=== PATIENT | male | born 1945 | race Caucasian/White ===

== ENCOUNTER 2016-10-26 10:31 | Emergency (ER) | payer OTHER ==
[~2016-10-26] VITALS: Ht 177.8 cm; Wt 94.0 kg
[~2016-10-26 10:31] MED LIST: ALPRAZOLAM2 MG PO; AMLODIPINE BESY10 MG PO; ASPIRIN81 M1; CYMBALTA30 MG PO; Colace PO; Cymbalta PO; DIOVAN320 MG PO; DIOVAN80 MG PO; Dulcolax PO; ECOTRIN325 MG PO; Folvite PO; Glucophage PO; JANUVIA100 MG PO; K-Dur PO; METFORMIN HCL1000 M1 PO; Motrin PO; Niferex-150,Ferrex 1 PO; Senokot,Sennagen PO; Theragran PO; Thiamine,Vitamin B1 PO; Xanax PO; ZYRTEC10 M2 PO; [UNRECOGNIZED DRUG - OTHER] PO
[2016-10-26 11:30] LABS: BASOPHIL COUNT 0.1 K/uL (0-0.1); EOSINOPHIL (%) 0.6 % (0-5); EOSINOPHIL COUNT 0.1 K/uL (0-0.3); HEMATOCRIT 38.3 % (38.0-50.0); IMMATURE GRANULOCYTE (%) 0.4 % (0.0-0.7); INSTRUMENT ABS NEUTROPHIL CT 7.1 K/uL; LYMPHOCYTE COUNT 1.4 K/uL (1.0-2.8); MCH 33.2 PG (29.0-34.0); MCHC 34.2 G/DL (30.0-36.0); MCV 97.2 FL (86-99); MEAN PLAT.VOLUME 8.4 uM^3 (9.0-12.4); MONOCYTE (%) 10.9 % (3-12); MONOCYTE COUNT 1.1 K/uL (0-0.8); NEUTROPHIL COUNT 7.1 K/uL (1.8-6.4); PLATELET COUNT 234 K/uL (156-360); RBC DIS.WIDTH-CV 11.9 % (11.8-14.6); RBC DIS.WIDTH-SD 42.5 % (39-53); RED BLOOD COUNT 3.94 M/uL (4.00-5.50); WHITE BLOOD COUNT 9.7 K/uL (4.1-10.2)
[2016-10-26 11:35] LABS: PROTHROMBIN TIME 11.5 SEC (10.2-12.9)
[2016-10-26 11:37] LABS: CHLORIDE 103 mEq/L (99-109); POTASSIUM 5.2 mEq/L (3.7-5.4); PTT 28.5 SEC (25-37); SODIUM 134 mEq/L (136-147)
[2016-10-26 11:38] LABS: MAGNESIUM 2.1 mg/dL (1.3-2.7)
[2016-10-26 11:40] LABS: GLUCOSE 178 mg/dL (70-99)
[2016-10-26 11:41] LABS: ANION GAP 12 MEQ/L (2-14)
[2016-10-26 11:42] LABS: TOTAL BILIRUBIN 0.6 mg/dL (0.0-1.0)
[2016-10-26 11:43] LABS: ALKALINE PHOSPHATASE 110 IU/L (3-129)
[2016-10-26 11:44] LABS: GFR ESTIMATE (CALCULATED) 37 mL/min/
[2016-10-26 11:45] LABS: UREA NITROGEN (BUN) 39 mg/dL (9-23)
[2016-10-26 11:47] LABS: CREATINE KINASE 35 IU/L (1-294)
[2016-10-26] MEDS ORDERED: ULTRAM50 MG PO (12:58)
[2016-10-26 16:05] VITALS: BP 107/81
== END 2016-10-26 16:06 | disposition home or self-care (01) ==
LOC: EME 10:31
PROVIDERS: Emergency Medicine
DX: M79.651 Pain in right thigh (principal); N28.9 Disorder of kidney and ureter, unspecified; I10 Essential (primary) hypertension; E11.9 Type 2 diabetes mellitus without complications; Z79.84 Long term (current) use of oral hypoglycemic drugs
CPT/HCPCS: 73552; 73719; 80053; 82550; 83735; 85025; 85610; 85730; 93971; 99281; 99284; J7030

== ENCOUNTER 2016-11-24 09:58 | Day surgery (SDC) | payer OTHER ==
[~2016-11-24] VITALS: Ht 179.1 cm; Wt 85.3 kg
[~2016-11-24 09:58] MED LIST changes: +LYRICA25 MG PO; +ROXICODONE5 MG PO; +ULTRAM50 MG PO; +VITAMIN B1 PO; +XANAX0.5 MG PO
[2016-11-24] MEDS ORDERED: ATORVASTATIN CA80 MG PO (10:06)
[2016-11-24] MEDS ORDERED: TRULICITY1.5 MG/0.5 SC (10:17)
[2016-11-24] MEDS ORDERED: GLUCOPHAGE500 MG PO (10:17)
[2016-11-24] MEDS ORDERED: LITHIUM CARBON300 MG PO (10:23)
[2016-11-24] MEDS ORDERED: FETZIMA20 MG PO (10:23)
[2016-11-24 10:30] LABS: POINT-OF-CARE METER ID UU14174212
[2016-11-24] MEDS ORDERED: ASPIRIN81 M2 PO (10:32)
== END 2016-11-24 12:20 | disposition home or self-care (01) ==
LOC: PAIN 09:58 → SDC 10:30 → PAIN 10:30
PROVIDERS: Anesthesiology Pain Medicine
DX: M54.16 Radiculopathy, lumbar region (principal); E11.9 Type 2 diabetes mellitus without complications; I10 Essential (primary) hypertension; Z79.891 Long term (current) use of opiate analgesic; Z79.84 Long term (current) use of oral hypoglycemic drugs
CPT/HCPCS: 82948; J1100; J1200; J2250; J3010

== ENCOUNTER 2016-12-10 09:54 | Day surgery (SDC) | payer OTHER ==
[~2016-12-10] VITALS: Ht 172.7 cm; Wt 91.6 kg
[~2016-12-10 09:54] MED LIST changes: +ASPIRIN81 M2 PO; +ATORVASTATIN CA80 MG PO; -DIOVAN80 MG PO; +FETZIMA20 MG PO; +GLUCOPHAGE500 MG PO; +LITHIUM CARBON300 MG PO; +TRULICITY1.5 MG/0.5 SC
[2016-12-10] MEDS ORDERED: XANAX0.5 MG PO (10:50)
[2016-12-10 10:57] VITALS: BP 112/65
[2016-12-10 11:29] LABS: POINT-OF-CARE METER ID UU14174212; POINT-OF-CARE USER ID AHSRSCSLC11
[2016-12-10 15:33] LABS: POINT-OF-CARE METER ID UU13113675
[2016-12-10 16:51] VITALS: BP 132/70
[2016-12-10 19:42] VITALS: BP 162/77
== END 2016-12-10 20:31 | disposition home or self-care (01) ==
LOC: SDC 09:54 → 2SOUTH 14:45 → SDC 14:58 → ENRESERV 15:17 → 3EAST 16:30
PROVIDERS: Neurological Surgery
DX: M48.061 Spinal stenosis, lumbar region without neurogenic claudication (principal); M51.16 Intervertebral disc disorders with radiculopathy, lumbar region; M47.26 Other spondylosis with radiculopathy, lumbar region; M41.9 Scoliosis, unspecified; I10 Essential (primary) hypertension; E11.9 Type 2 diabetes mellitus without complications; Z79.82 Long term (current) use of aspirin; Z79.84 Long term (current) use of oral hypoglycemic drugs
CPT/HCPCS: 72020; 76000; 82948; 84132; 90686; G0378; J0690; J1100; J1170; J2250; J2370; J2405; J2765; J2930; J3010; J3370; J3480; S0020

== ENCOUNTER 2017-02-11 23:21 | Observation (INO) | payer OTHER ==
[~2017-02-11] VITALS: Ht 177.8 cm; Wt 87.4 kg
[~2017-02-11 23:21] MED LIST changes: +FETZIMA120 MG PO; -FETZIMA20 MG PO; +GLUCOPHAGE XR,500 MG PO; -GLUCOPHAGE500 MG PO; -LITHIUM CARBON300 MG PO; +LITHOBID300 MG PO; -LYRICA25 MG PO; +LYRICA75 MG PO; +XANAX1 MG PO
[2017-02-11 23:47] LABS: BASOPHIL COUNT 0.1 K/uL (0-0.1); EOSINOPHIL (%) 1.1 % (0-5); EOSINOPHIL COUNT 0.1 K/uL (0-0.3); HEMATOCRIT 39.3 % (38.0-50.0); IMMATURE GRANULOCYTE (%) 0.1 % (0.0-0.7); LYMPHOCYTE COUNT 2.7 K/uL (1.0-2.8); MCH 34.3 PG (29.0-34.0); MCHC 33.8 G/DL (30.0-36.0); MCV 101.3 FL (86-99); MEAN PLAT.VOLUME 8.7 uM^3 (9.0-12.4); MONOCYTE (%) 8.1 % (3-12); MONOCYTE COUNT 0.6 K/uL (0-0.8); NEUTROPHIL (%) 54.1 % (45-76); PLATELET COUNT 285 K/uL (156-360); RBC DIS.WIDTH-CV 12.4 % (11.8-14.6); RBC DIS.WIDTH-SD 46.5 % (39-53); RED BLOOD COUNT 3.88 M/uL (4.00-5.50); WHITE BLOOD COUNT 7.4 K/uL (4.1-10.2)
[2017-02-11 23:53] LABS: PROTHROMBIN TIME 11.4 SEC (10.2-12.9)
[2017-02-11 23:56] LABS: AMYLASE 61 IU/L (1-118); PTT 31.9 SEC (25-37)
[2017-02-11 23:57] LABS: CHLORIDE 100 mEq/L (99-109); POTASSIUM 4.4 mEq/L (3.7-5.4); SODIUM 135 mEq/L (136-147)
[2017-02-11 23:58] LABS: GLUCOSE 142 mg/dL (70-99)
[2017-02-12] LABS: ANION GAP 16 MEQ/L (2-14)
[2017-02-12 00:01] LABS: SERUM ETHYL ALCOHOL 320 mg/dL
[2017-02-12 00:02] LABS: GFR ESTIMATE (CALCULATED) 58 mL/min/ (58.99-99999)
[2017-02-12 00:03] LABS: UREA NITROGEN (BUN) 29 mg/dL (9-23)
[2017-02-12 00:05] LABS: LIPASE 79 U/L (1.0-51.0)
[2017-02-12 00:09] LABS: TROP-I INTERPRETATION NEGATIVE; TROPONIN-I < 0.01 ng/mL (0.0-0.30)
[2017-02-12] MEDS ORDERED: ALDACTONE50 MG PO (01:19)
[2017-02-12] MEDS ORDERED: TIZANIDINE HCL4 MG PO (01:19)
[2017-02-12] MEDS ORDERED: ADALAT CC 60 MG60 MG PO (01:19)
[2017-02-12] MEDS ORDERED: TRAZODONE HCL50 MG PO (01:19)
[2017-02-12] MEDS ORDERED: FLUAD 201745 MCG/0.5 IM (01:20)
[2017-02-12] MEDS ORDERED: CARBIDOPA/LEVO1 EACH PO (01:20)
[2017-02-12] MEDS ORDERED: LIPITOR80 MG PO (01:20)
[2017-02-12 02:40] LABS: ADD MIUA? NO; BILIRUBIN NEGATIVE; BLOOD NEGATIVE; COLOR STRAW ((YELLOW)); GLUCOSE (STRIP) NEGATIVE; KETONES NEGATIVE; LEUKOCYTES NEGATIVE; NITRITE NEGATIVE; PROTEIN (STRIP) NEGATIVE; SPECIFIC GRAVITY 1.006 (1.000-1.030); UCUL ADDED? NO; UROBILINOGEN 0.2 MG/DL (0.2-1.0)
[2017-02-12 02:57] LABS: COCAINE NEGATIVE (150 ng/mL); PHENCYCLIDINE NEGATIVE (25 ng/mL); THC CANNABINOIDS NEGATIVE (50 ng/mL)
[2017-02-12 02:58] LABS: AMPHETAMINE NEGATIVE (500 ng/mL); BARBITURATES NEGATIVE (200 ng/mL); BENZODIAZEPINES PRESUMPTIVE POSITIVE (150 ng/mL); METHADONE NEGATIVE (200 ng/mL); METHAMPHETAMINE NEGATIVE (500 ng/mL); OPIATES (MORPHINE) NEGATIVE (100 ng/mL); OXYCODONE NEGATIVE (100 ng/mL); TRICYCLIC ANTIDEPRESSANTS NEGATIVE (300 ng/mL)
[2017-02-12 03:02] LABS: ADD MEDTOX COMMENT Y; INTERNAL CONTROLS VALID? YES; PROPOXYPHENE NEGATIVE (300 ng/mL)
[2017-02-12 03:44] LABS: BENZODIAZEPINES, URINE SCREEN POSITIVE (200 ng/mL)
[2017-02-12 07:00] LABS: HEMATOCRIT 36.4 % (38.0-50.0); MCH 34.2 PG (29.0-34.0); MCHC 34.1 G/DL (30.0-36.0); MCV 100.3 FL (86-99); MEAN PLAT.VOLUME 8.6 uM^3 (9.0-12.4); PLATELET COUNT 261 K/uL (156-360); RBC DIS.WIDTH-CV 12.3 % (11.8-14.6); RBC DIS.WIDTH-SD 46.5 % (39-53); RED BLOOD COUNT 3.63 M/uL (4.00-5.50)
[2017-02-12 07:17] LABS: Estimated Average Glucose 94 mg/dL (70-123); HEMOGLOBIN A1c (GLYCOHEMOGLOB) 4.9 % HGB (Below 5.7)
[2017-02-12 07:27] LABS: TROP-I INTERPRETATION NEGATIVE; TROPONIN-I < 0.01 ng/mL (0.0-0.30)
[2017-02-12 07:31] LABS: HDL CHOLESTEROL 92 MG/DL (Desirable>=40); LDL CHOLESTEROL 48 mg/dL (Desirable<100); NON-HDL CHOLESTEROL 63 mg/dL (Desirable<160); TOTAL CHOLESTEROL 155 mg/dL (Desirable<200); TRIGLYCERIDES 75 MG/DL (Normal: <150)
[2017-02-12 10:58] VITALS: BP 138/79
[2017-02-12 12:35] LABS: TROP-I INTERPRETATION NEGATIVE; TROPONIN-I < 0.01 ng/mL (0.0-0.30)
[2017-02-12 15:23] VITALS: BP 142/74
[2017-02-12 16:54] LABS: POINT-OF-CARE METER ID UU14314088
[2017-02-12 20:12] VITALS: BP 132/77
[2017-02-12 21:19] LABS: POINT-OF-CARE METER ID UU13113698
[2017-02-13 00:15] VITALS: BP 152/84
[2017-02-13 05:19] VITALS: BP 139/83
[2017-02-13 07:36] VITALS: BP 146/86
[2017-02-13 07:36] LABS: EOSINOPHIL (%) 1.9 % (0-5); EOSINOPHIL COUNT 0.1 K/uL (0-0.3); HEMATOCRIT 38.3 % (38.0-50.0); IMMATURE GRANULOCYTE (%) 0.2 % (0.0-0.7); INSTRUMENT ABS NEUTROPHIL CT 3.2 K/uL; LYMPHOCYTE COUNT 1.2 K/uL (1.0-2.8); MCH 33.3 PG (29.0-34.0); MCHC 32.4 G/DL (30.0-36.0); MEAN PLAT.VOLUME 8.8 uM^3 (9.0-12.4); MONOCYTE (%) 12.7 % (3-12); MONOCYTE COUNT 0.7 K/uL (0-0.8); NEUTROPHIL (%) 61.3 % (45-76); NEUTROPHIL COUNT 3.2 K/uL (1.8-6.4); PLATELET COUNT 195 K/uL (156-360); RBC DIS.WIDTH-CV 12.4 % (11.8-14.6); RBC DIS.WIDTH-SD 47.1 % (39-53); RED BLOOD COUNT 3.72 M/uL (4.00-5.50); WHITE BLOOD COUNT 5.2 K/uL (4.1-10.2)
[2017-02-13 07:50] LABS: ALKALINE PHOSPHATASE 92 IU/L (3-129); ANION GAP 9 MEQ/L (2-14); CHLORIDE 107 MEQ/L (99-109); GFR ESTIMATE (CALCULATED) > 59 mL/min/ (58.99-99999); GLUCOSE 94 mg/dL (70-99); LITHIUM 0.8 MEQ/L (0.6-1.2); POTASSIUM 4.6 MEQ/L (3.7-5.4); SAMPLE HEMOLYSIS CHECK 0; SAMPLE ICTERIC CHECK 0; SAMPLE LIPEMIA CHECK 0; SODIUM 139 MEQ/L (136-147); TOTAL BILIRUBIN 0.7 MG/DL (0.0-1.0); UREA NITROGEN (BUN) 23 mg/dL (9-23)
[2017-02-13 07:57] LABS: POINT-OF-CARE METER ID UU13113781
[2017-02-13 11:29] LABS: POINT-OF-CARE METER ID UU13113781
[2017-02-13] MEDS ORDERED: FOLIC ACID1 MG PO (11:37)
[2017-02-13] MEDS ORDERED: Vitamin B-12 SL (11:37)
[2017-02-13] MEDS ORDERED: Thiamine,Vitamin B1 PO (11:37)
[2017-02-13 12:15] VITALS: BP 157/85
== END 2017-02-13 12:45 | disposition home or self-care (01) ==
LOC: EME 23:21 → EDBD 23:21 → EME 23:21 → 4EAST 02-12 01:35 → EDOF 02-12 01:35 → CANRESERV 02-12 01:37 → ENRESERV 02-12 01:37 → 4EAST 02-12 10:50
PROVIDERS: Hospitalist; Specialist
DX: F10.129 Alcohol abuse with intoxication, unspecified (principal); R53.1 Weakness; R47.01 Aphasia; R41.82 Altered mental status, unspecified; Y90.8 Blood alcohol level of 240 mg/100 ml or more; I10 Essential (primary) hypertension; E78.5 Hyperlipidemia, unspecified; E11.9 Type 2 diabetes mellitus without complications; F32.9 Major depressive disorder, single episode, unspecified; R26.2 Difficulty in walking, not elsewhere classified; M48.061 Spinal stenosis, lumbar region without neurogenic claudication; G93.0 Cerebral cysts; Z79.82 Long term (current) use of aspirin; Z79.84 Long term (current) use of oral hypoglycemic drugs
CPT/HCPCS: 70450; 70551; 80048; 80053; 80061; 80178; 81003; 82150; 82550; 82607; 82948; 83036; 83690; 84484; 84999; 85025; 85027; 85610; 85730; 86850; 86900; 86901; 93005; 93306; 99281; 99285; G0378; G0480; G8978 GP CJ; G8979 GP CH; G8980 CJ; G8987 GO CJ; G8988 CI; G8989 CJ; J1644; J1815; J7030

== ENCOUNTER 2017-02-19 12:23 | Emergency (ER) | payer OTHER ==
[~2017-02-19] VITALS: Ht 177.8 cm; Wt 84.1 kg
[~2017-02-19 12:23] MED LIST changes: +ADALAT CC 60 MG60 MG PO; +ALDACTONE50 MG PO; +CARBIDOPA/LEVO1 EACH PO; +FLUAD 201745 MCG/0.5 IM; +FOLIC ACID1 MG PO; +LIPITOR80 MG PO; +TIZANIDINE HCL4 MG PO; +TRAZODONE HCL50 MG PO; +Vitamin B-12 SL
[2017-02-19 13:23] LABS: EOSINOPHIL (%) 1.5 % (0-5); EOSINOPHIL COUNT 0.1 K/uL (0-0.3); HEMATOCRIT 35.1 % (38.0-50.0); IMMATURE GRANULOCYTE (%) 0.3 % (0.0-0.7); INSTRUMENT ABS NEUTROPHIL CT 5.1 K/uL; LYMPHOCYTE COUNT 1.4 K/uL (1.0-2.8); MCH 34.4 PG (29.0-34.0); MCHC 33.3 G/DL (30.0-36.0); MCV 103.2 FL (86-99); MONOCYTE (%) 8.1 % (3-12); MONOCYTE COUNT 0.6 K/uL (0-0.8); NEUTROPHIL (%) 69.8 % (45-76); NEUTROPHIL COUNT 5.1 K/uL (1.8-6.4); RBC DIS.WIDTH-CV 12.1 % (11.8-14.6); RBC DIS.WIDTH-SD 46.1 % (39-53); WHITE BLOOD COUNT 7.3 K/uL (4.1-10.2)
[2017-02-19 13:35] LABS: CHLORIDE 103 mEq/L (99-109)
[2017-02-19 13:36] LABS: MAGNESIUM 2.5 mg/dL (1.3-2.7)
[2017-02-19 13:38] LABS: GLUCOSE 116 mg/dL (70-99)
[2017-02-19 13:39] LABS: ANION GAP 11 MEQ/L (2-14)
[2017-02-19 13:40] LABS: TOTAL BILIRUBIN 0.6 mg/dL (0.0-1.0)
[2017-02-19 13:41] LABS: ALKALINE PHOSPHATASE 111 IU/L (3-129); POTASSIUM 6.5 mEq/L (3.7-5.4); SERUM ETHYL ALCOHOL < 10 mg/dL; SODIUM 131 mEq/L (136-147)
[2017-02-19 13:42] LABS: GFR ESTIMATE (CALCULATED) 53 mL/min/ (58.99-99999)
[2017-02-19 13:43] LABS: UREA NITROGEN (BUN) 35 mg/dL (9-23)
[2017-02-19 13:47] LABS: TROP-I INTERPRETATION NEGATIVE; TROPONIN-I < 0.01 ng/mL (0.0-0.30)
[2017-02-19 15:32] LABS: CHLORIDE 103 mEq/L (99-109); POTASSIUM 5.9 mEq/L (3.7-5.4); SODIUM 133 mEq/L (136-147)
[2017-02-19 15:33] LABS: GLUCOSE 94 mg/dL (70-99)
[2017-02-19 15:35] LABS: ANION GAP 9 MEQ/L (2-14)
[2017-02-19 15:37] LABS: BILIRUBIN NEGATIVE; BLOOD NEGATIVE; COLOR YELLOW ((YELLOW)); GLUCOSE (STRIP) NEGATIVE; KETONES NEGATIVE; LEUKOCYTES NEGATIVE; NITRITE NEGATIVE; PROTEIN (STRIP) NEGATIVE; SPECIFIC GRAVITY 1.011 (1.000-1.030); UROBILINOGEN 0.2 MG/DL (0.2-1.0)
[2017-02-19 15:37] LABS: GFR ESTIMATE (CALCULATED) 58 mL/min/ (58.99-99999)
[2017-02-19 15:38] LABS: UREA NITROGEN (BUN) 35 mg/dL (9-23)
[2017-02-19 15:38] LABS: ADD MIUA? NO; UCUL ADDED? NO
[2017-02-19 16:45] VITALS: BP 112/67
== END 2017-02-19 16:49 | disposition home or self-care (01) ==
LOC: EME 12:23
PROVIDERS: Emergency Medicine
DX: E87.5 Hyperkalemia (principal); R03.1 Nonspecific low blood-pressure reading; R53.1 Weakness; S51.812D Laceration without foreign body of left forearm, subsequent encounter; W19.XXXD Unspecified fall, subsequent encounter; I10 Essential (primary) hypertension; Z79.82 Long term (current) use of aspirin; Z79.84 Long term (current) use of oral hypoglycemic drugs
CPT/HCPCS: 71010; 80048 91; 80053; 80178; 81003; 83735; 83880; 84484; 85025; 93005; 99281; 99285; G0480; J7040

== ENCOUNTER 2017-10-04 11:57 | Observation (INO) | payer OTHER ==
[~2017-10-04] VITALS: Ht 177.8 cm; Wt 93.0 kg
[2017-10-04 12:42] LABS: BASOPHIL (%) 0.7 % (0-1); EOSINOPHIL (%) 0.9 % (0-5); HEMATOCRIT 34.1 % (38.0-50.0); HEMOGLOBIN 11.7 G/DL (12.5-16.6); IMMATURE GRANULOCYTE (%) 0.2 % (0.0-0.7); LYMPHOCYTE (%) 16.7 % (15-42); LYMPHOCYTE COUNT 0.7 K/uL (1.0-2.8); MCH 33.8 PG (29.0-34.0); MCHC 34.3 G/DL (30.0-36.0); MCV 98.6 FL (86-99); MONOCYTE (%) 7.7 % (3-12); MONOCYTE COUNT 0.3 K/uL (0-0.8); NEUTROPHIL (%) 73.8 % (45-76); NEUTROPHIL COUNT 3.1 K/uL (1.8-6.4); PLATELET COUNT 116 K/uL (156-360); RBC DIS.WIDTH-CV 12.8 % (11.8-14.6); RBC DIS.WIDTH-SD 45.9 % (39-53); RED BLOOD COUNT 3.46 M/uL (4.00-5.50); WHITE BLOOD COUNT 4.3 K/uL (4.1-10.2)
[2017-10-04 12:43] LABS: INTER. NORMALIZED RATIO 1.1
[2017-10-04 12:46] LABS: PTT 25.3 SEC (25-37)
[2017-10-04 12:57] LABS: TROP-I INTERPRETATION NEGATIVE; TROPONIN-I < 0.01 ng/mL (0.0-0.30)
[2017-10-04 13:01] LABS: CHLORIDE 106 MEQ/L (99-109); POTASSIUM 4.1 MEQ/L (3.7-5.4); SODIUM 140 MEQ/L (136-147)
[2017-10-04 13:07] LABS: CREATININE 1.6 MG/DL (0.6-1.3); GFR ESTIMATE (CALCULATED) 46 mL/min/ (58.99-99999); GLUCOSE 130 mg/dL (70-99); UREA NITROGEN (BUN) 28 mg/dL (9-23)
[2017-10-04] MEDS ORDERED: QUETIAPINE FUM400 M1 PO (14:21)
[2017-10-04] MEDS ORDERED: JARDIANCE10 MG PO (14:22)
[2017-10-04] MEDS ORDERED: VITAMIN D2000 UNI1 PO (14:22)
[2017-10-04] MEDS ORDERED: VIIBRYD40 MG PO (14:22)
[2017-10-04] MEDS ORDERED: CYANOCOBALAM1000 MCG PO (14:22)
[2017-10-04] MEDS ORDERED: ADVIL,NUPRIN,M200 MG PO (14:23)
[2017-10-04 15:57] VITALS: BP 126/64
[2017-10-04 19:22] LABS: TROP-I INTERPRETATION NEGATIVE; TROPONIN-I < 0.01 ng/mL (0.0-0.30)
[2017-10-04 23:00] VITALS: BP 137/93
[2017-10-05 01:07] LABS: TROP-I INTERPRETATION NEGATIVE; TROPONIN-I < 0.01 ng/mL (0.0-0.30)
[2017-10-05 04:15] VITALS: BP 149/82
[2017-10-05 06:09] LABS: CHLORIDE 108 MEQ/L (99-109); CREATININE 1.4 MG/DL (0.6-1.3); GFR ESTIMATE (CALCULATED) 53 mL/min/ (58.99-99999); POTASSIUM 4.1 MEQ/L (3.7-5.4); SODIUM 140 MEQ/L (136-147); UREA NITROGEN (BUN) 31 mg/dL (9-23)
[2017-10-05 06:13] LABS: GLUCOSE 87 mg/dL (70-99)
[2017-10-05 08:18] VITALS: BP 158/83
== END 2017-10-05 12:34 | disposition home or self-care (01) ==
LOC: EME 11:57 → 4SOUTH 14:08 → EDOF 14:08 → 4SOUTH 14:08 → EDOF 14:08 → ENRESERV 14:16 → CANRESERV 14:16 → ENRESERV 14:55 → 4SOUTH 15:35 → ENPENDDIS 10-05 11:31 → 4SOUTH 10-05 12:34
PROVIDERS: Emergency Medicine; Internal Medicine
DX: I95.1 Orthostatic hypotension (principal); E86.0 Dehydration; R13.10 Dysphagia, unspecified; E78.5 Hyperlipidemia, unspecified; E11.9 Type 2 diabetes mellitus without complications; G20 Parkinson's disease; I10 Essential (primary) hypertension; S51.811A Laceration without foreign body of right forearm, initial encounter; Z79.82 Long term (current) use of aspirin; Z79.84 Long term (current) use of oral hypoglycemic drugs; F32.9 Major depressive disorder, single episode, unspecified; R09.02 Hypoxemia
CPT/HCPCS: 70450; 71045; 74220; 80048; 82948; 84484; 85025; 85610; 85730; 93005; 99281; 99285; G0378; J1644; J7030; J7040